=== PATIENT | female | born 1950 | race Caucasian/White ===

== ENCOUNTER 2016-05-18 08:31 | Inpatient (IN) | payer SELFPAY ==
[~2016-05-18] VITALS: Ht 154.9 cm; Wt 60.6 kg
[2016-05-18] MEDS ORDERED: SODIUM CHLORIDE 0.9% 1,000 ML IV ONE (08:54)
[2016-05-18] MEDS ORDERED: ONDANSETRON 2MG/ML, 2ML IVPush ONE (09:00)
[2016-05-18] MEDS ORDERED: HYDROmorphone 1 MG/ML, 1ML IVPush PRN (09:00)
[2016-05-18] MEDS ORDERED: SODIUM CHLORIDE FLUSH 10ML SYR IVF ONE (09:00)
[2016-05-18 09:21] LABS: HEMOGLOBIN 13.9 g/dL (11.7-16.4)
[2016-05-18 09:55] LABS: DAU SCREEN DISCLAIMER
[2016-05-18] MEDS ORDERED: ONDANSETRON 2MG/ML, 2ML ONE (10:24)
[2016-05-18] MEDS ORDERED: HYDROmorphone 1 MG/ML, 1ML ONE ×2 (10:24→10:26)
[2016-05-18 10:25] LABS: BLOOD UREA NITROGEN 13 mg/dL (7-18)
[2016-05-18 10:26] LABS: ASPARTATE AMINO TRANSFERASE 33 U/L (15-37); IS PT STATUS REG ER OR PRE ER? YES
[2016-05-18] MEDS ORDERED: CEFAZOLIN PMX 1GM/50ML 50 ML IVPB ONE (11:00)
[2016-05-18] MEDS ORDERED: CEFAZOLIN PMX 1GM/50ML 50 ML ONE (11:20)
[2016-05-18] MEDS ORDERED: ONDANSETRON 2MG/ML, 2ML IVP PRN (12:00)
[2016-05-18] MEDS ORDERED: HALOPERIDOL 5 MG/ML IVPush PRN (12:00)
[2016-05-18] MEDS ORDERED: MORPHINE SULFATE 4 MG/ML, 1ML IVPush PRN (12:00)
[2016-05-18] MEDS ORDERED: BISACODYL 10 MG SUPP PR PRN (12:00)
[2016-05-18] MEDS ORDERED: LABETALOL 5MG/ML, 20ML IV PRN (12:00)
[2016-05-18 12:29] VITALS: BP_SYST 131; BP_SYST 132; BP_SYST 77; BP_DIAS 41; BP_DIAS 72; BP_DIAS 75
[2016-05-18] MEDS: CEFAZOLIN PMX 1GM/50ML 50 ML IV SCH ×2 (13:00→23:30)
[2016-05-18] MEDS: LACTATED RINGERS 1,000 ML IV SCH ×2 (13:37→22:06)
[2016-05-18] MEDS: NICOTINE 21 MG/24 HR PATCH.TD24 TD SCH (13:39)
[2016-05-18 13:44] VITALS: BP 110/57
[2016-05-18] MEDS: HYDROmorphone 2 MG/ML, 1ML IV PRN (14:29)
[2016-05-18] MEDS: ENOXAPARIN 40 MG/0.4 ML SQ SCH (18:00)
[2016-05-18 19:20] VITALS: BP 106/72
[2016-05-19 00:59] VITALS: BP 121/79
[2016-05-19 02:53] VITALS: BP_SYST 112; BP_SYST 121; BP_SYST 127; BP_DIAS 71; BP_DIAS 77; BP_DIAS 79
[2016-05-19 05:25] LABS: HEMOGLOBIN 11.8 g/dL (11.7-16.4)
[2016-05-19 05:44] LABS: ASPARTATE AMINO TRANSFERASE 13 U/L (15-37); BLOOD UREA NITROGEN 9 mg/dL (7-18)
[2016-05-19 06:46] VITALS: BP 144/73
[2016-05-19] MEDS: CEFAZOLIN PMX 1GM/50ML 50 ML IV SCH ×2 (11:33→23:56)
[2016-05-19] MEDS: HYDROmorphone 2 MG/ML, 1ML IV PRN ×2 (11:34→20:50)
[2016-05-19] MEDS: LACTATED RINGERS 1,000 ML IV SCH ×2 (11:35→20:41)
[2016-05-19] MEDS: NICOTINE 21 MG/24 HR PATCH.TD24 TD SCH (13:21)
[2016-05-19 15:13] VITALS: BP 109/67
[2016-05-19] MEDS: ENOXAPARIN 40 MG/0.4 ML SQ SCH (18:00)
[2016-05-19 18:37] VITALS: BP 108/68
[2016-05-20] MEDS: OXYcodone IR 5MG TABLET PO PRN ×3 (00:07→20:40)
[2016-05-20 01:29] VITALS: BP 115/73
[2016-05-20] MEDS: LACTATED RINGERS 1,000 ML IV SCH (04:13)
[2016-05-20 07:36] VITALS: BP 101/64
[2016-05-20] MEDS: NICOTINE 21 MG/24 HR PATCH.TD24 TD SCH (12:12)
[2016-05-20] MEDS: metroNIDAZOLE 500 MG TABLET PO SCH ×2 (12:12→21:24)
[2016-05-20 16:29] VITALS: BP 110/65
[2016-05-20] MEDS: ENOXAPARIN 40 MG/0.4 ML SQ SCH (18:01)
[2016-05-20 19:30] VITALS: BP 132/75
[2016-05-21 01:15] VITALS: BP 100/58
[2016-05-21] MEDS: OXYcodone IR 5MG TABLET PO PRN ×4 (03:21→21:19)
[2016-05-21 07:57] VITALS: BP 121/70
[2016-05-21] MEDS: metroNIDAZOLE 500 MG TABLET PO SCH ×2 (08:33→21:13)
[2016-05-21] MEDS: ENOXAPARIN 40 MG/0.4 ML SQ SCH (18:15)
[2016-05-21 20:00] VITALS: BP 104/65
[2016-05-21] MEDS: NICOTINE 21 MG/24 HR PATCH.TD24 TD SCH (21:00)
[2016-05-22 02:30] VITALS: BP 131/67
[2016-05-22] MEDS: OXYcodone IR 5MG TABLET PO PRN ×4 (03:00→20:34)
[2016-05-22 07:24] VITALS: BP 109/70
[2016-05-22] MEDS: metroNIDAZOLE 500 MG TABLET PO SCH ×2 (08:51→20:30)
[2016-05-22 12:45] VITALS: BP 115/74
[2016-05-22] MEDS: ENOXAPARIN 40 MG/0.4 ML SQ SCH (17:46)
[2016-05-22 19:18] VITALS: BP 125/76
[2016-05-22] MEDS: NICOTINE 21 MG/24 HR PATCH.TD24 TD SCH (20:30)
[2016-05-23 02:10] VITALS: BP 113/72
[2016-05-23] MEDS: OXYcodone IR 5MG TABLET PO PRN ×5 (02:41→21:25)
[2016-05-23 05:20] LABS: BLOOD UREA NITROGEN 12 mg/dL (7-18)
[2016-05-23 06:41] VITALS: BP 115/72
[2016-05-23] MEDS: metroNIDAZOLE 500 MG TABLET PO SCH ×2 (07:46→21:24)
[2016-05-23] MEDS ORDERED: BISACODYL 5 MG EC TABLET PO PRN (10:00)
[2016-05-23] MEDS: POLYETHYLENE GLYCOL 17 GM PACKET PO SCH (11:25)
[2016-05-23 13:13] VITALS: BP 120/78
[2016-05-23] MEDS: ENOXAPARIN 40 MG/0.4 ML SQ SCH (17:40)
[2016-05-23 19:17] VITALS: BP 125/72
[2016-05-23] MEDS: NICOTINE 21 MG/24 HR PATCH.TD24 TD SCH (21:00)
[2016-05-24 01:19] VITALS: BP 120/74
[2016-05-24] MEDS: OXYcodone IR 5MG TABLET PO PRN ×4 (02:01→20:33)
[2016-05-24 07:07] VITALS: BP 111/70
[2016-05-24] MEDS: metroNIDAZOLE 500 MG TABLET PO SCH ×2 (09:25→20:33)
[2016-05-24] MEDS: POLYETHYLENE GLYCOL 17 GM PACKET PO SCH (09:26)
[2016-05-24 14:12] VITALS: BP 118/78
[2016-05-24] MEDS: ENOXAPARIN 40 MG/0.4 ML SQ SCH (18:00)
[2016-05-24 18:38] VITALS: BP 106/67
[2016-05-24] MEDS: NICOTINE 21 MG/24 HR PATCH.TD24 TD SCH (20:33)
[2016-05-25 01:11] VITALS: BP 110/69
[2016-05-25] MEDS: OXYcodone IR 5MG TABLET PO PRN ×4 (01:50→23:24)
[2016-05-25 07:16] VITALS: BP 103/66
[2016-05-25] MEDS: metroNIDAZOLE 500 MG TABLET PO SCH ×2 (08:35→21:18)
[2016-05-25] MEDS: POLYETHYLENE GLYCOL 17 GM PACKET PO SCH (08:35)
[2016-05-25] MEDS: ASPIRIN 81 MG TABLET EC PO SCH (08:35)
[2016-05-25 14:23] VITALS: BP 106/70
[2016-05-25] MEDS ORDERED: OLANZAPINE 10 MG INJ IM PRN (15:30)
[2016-05-25] MEDS ORDERED: LORazepam 2 MG/ML, 1ML IM PRN (15:30)
[2016-05-25] MEDS ORDERED: BENZTROPINE 1 MG TABLET PO PRN (15:30)
[2016-05-25] MEDS: ENOXAPARIN 40 MG/0.4 ML SQ SCH (17:03)
[2016-05-25 20:16] VITALS: BP 104/66
[2016-05-25] MEDS: OLANZAPINE 5 MG TABLET PO SCH (21:18)
[2016-05-25] MEDS: ATORVASTATIN 10 MG TABLET PO SCH (21:18)
[2016-05-25] MEDS: NICOTINE 21 MG/24 HR PATCH.TD24 TD SCH (21:18)
[2016-05-26 02:06] VITALS: BP 110/59
[2016-05-26] MEDS: OXYcodone IR 5MG TABLET PO PRN ×4 (05:04→19:47)
[2016-05-26] MEDS: ASPIRIN 81 MG TABLET EC PO SCH (05:04)
[2016-05-26 07:46] VITALS: BP 98/63
[2016-05-26] MEDS: POLYETHYLENE GLYCOL 17 GM PACKET PO SCH (09:16)
[2016-05-26] MEDS: metroNIDAZOLE 500 MG TABLET PO SCH ×2 (09:16→19:47)
[2016-05-26 13:30] VITALS: BP 95/59
[2016-05-26] MEDS: ENOXAPARIN 40 MG/0.4 ML SQ SCH (15:34)
[2016-05-26 18:34] VITALS: BP 117/65
[2016-05-26] MEDS: OLANZAPINE 5 MG TABLET PO SCH (19:47)
[2016-05-26] MEDS: ATORVASTATIN 10 MG TABLET PO SCH (19:47)
[2016-05-26] MEDS: NICOTINE 21 MG/24 HR PATCH.TD24 TD SCH (19:47)
[2016-05-27 02:00] VITALS: BP 128/74
[2016-05-27] MEDS: ASPIRIN 81 MG TABLET EC PO SCH (05:12)
[2016-05-27] MEDS: OXYcodone IR 5MG TABLET PO PRN ×3 (05:12→20:52)
[2016-05-27 06:49] VITALS: BP 112/67
[2016-05-27] MEDS: POLYETHYLENE GLYCOL 17 GM PACKET PO SCH ×2 (09:00→09:05)
[2016-05-27] MEDS: metroNIDAZOLE 500 MG TABLET PO SCH (09:05)
[2016-05-27 13:22] VITALS: BP 108/64
[2016-05-27] MEDS: ENOXAPARIN 40 MG/0.4 ML SQ SCH (18:00)
[2016-05-27 19:06] VITALS: BP 118/70
[2016-05-27] MEDS: ATORVASTATIN 10 MG TABLET PO SCH (20:52)
[2016-05-27] MEDS: OLANZAPINE 5 MG TABLET PO SCH (20:52)
[2016-05-27] MEDS: NICOTINE 21 MG/24 HR PATCH.TD24 TD SCH (20:53)
[2016-05-28 03:43] VITALS: BP 111/73
[2016-05-28] MEDS: ASPIRIN 81 MG TABLET EC PO SCH (05:57)
[2016-05-28] MEDS: POLYETHYLENE GLYCOL 17 GM PACKET PO SCH (07:38)
[2016-05-28] MEDS: OXYcodone IR 5MG TABLET PO PRN ×2 (07:47→20:09)
[2016-05-28 07:55] VITALS: BP 138/75
[2016-05-28 13:15] VITALS: BP 107/71
[2016-05-28] MEDS: ENOXAPARIN 40 MG/0.4 ML SQ SCH (17:26)
[2016-05-28 19:48] VITALS: BP 124/77
[2016-05-28] MEDS: ATORVASTATIN 10 MG TABLET PO SCH (20:09)
[2016-05-28] MEDS: OLANZAPINE 5 MG TABLET PO SCH (20:10)
[2016-05-28] MEDS: NICOTINE 21 MG/24 HR PATCH.TD24 TD SCH (20:10)
[2016-05-29 00:48] VITALS: BP 107/70
[2016-05-29] MEDS: ASPIRIN 81 MG TABLET EC PO SCH (05:39)
[2016-05-29] MEDS: OXYcodone IR 5MG TABLET PO PRN ×4 (05:43→20:02)
[2016-05-29 08:22] VITALS: BP 114/72
[2016-05-29] MEDS: POLYETHYLENE GLYCOL 17 GM PACKET PO SCH (08:41)
[2016-05-29 15:02] VITALS: BP 114/65
[2016-05-29 16:14] VITALS: BP 185/111
[2016-05-29 19:01] VITALS: BP 104/66
[2016-05-29] MEDS: OLANZAPINE 5 MG TABLET PO SCH (20:02)
[2016-05-29] MEDS: NICOTINE 21 MG/24 HR PATCH.TD24 TD SCH (20:02)
[2016-05-29] MEDS: ATORVASTATIN 10 MG TABLET PO SCH (20:02)
[2016-05-30] MEDS: OXYcodone IR 5MG TABLET PO PRN ×4 (01:27→16:22)
[2016-05-30 01:51] VITALS: BP 110/71
[2016-05-30] MEDS: ASPIRIN 81 MG TABLET EC PO SCH (05:28)
[2016-05-30 07:02] VITALS: BP 102/64
[2016-05-30] MEDS: POLYETHYLENE GLYCOL 17 GM PACKET PO SCH (09:00)
[2016-05-30] MEDS ORDERED: OLAN5TAB9 PO (12:49)
[2016-05-30 12:52] VITALS: BP 109/67
[2016-05-30 19:11] VITALS: BP 110/70
[2016-05-30] MEDS: ATORVASTATIN 10 MG TABLET PO SCH (19:52)
[2016-05-30] MEDS: OLANZAPINE 5 MG TABLET PO SCH (19:52)
[2016-05-30] MEDS: NICOTINE 21 MG/24 HR PATCH.TD24 TD SCH (19:53)
[2016-05-31 04:40] VITALS: BP 145/78
[2016-05-31] MEDS: ASPIRIN 81 MG TABLET EC PO SCH (04:47)
[2016-05-31] MEDS: OXYcodone IR 5MG TABLET PO PRN ×3 (04:47→22:23)
[2016-05-31 07:44] VITALS: BP 89/56
[2016-05-31] MEDS: POLYETHYLENE GLYCOL 17 GM PACKET PO SCH (09:00)
[2016-05-31 09:40] VITALS: BP 103/84
[2016-05-31 14:00] VITALS: BP 104/61
[2016-05-31 19:44] VITALS: BP 115/74
[2016-05-31] MEDS: NICOTINE 21 MG/24 HR PATCH.TD24 TD SCH (22:23)
[2016-05-31] MEDS: OLANZAPINE 5 MG TABLET PO SCH (22:24)
[2016-05-31] MEDS: ATORVASTATIN 10 MG TABLET PO SCH (22:24)
[2016-06-01] MEDS ORDERED: ASPI-496 PO (01:28)
[2016-06-01] MEDS ORDERED: ATOR10TA PO (01:32)
[2016-06-01] MEDS ORDERED: ATOR80TA75 PO (01:32)
[2016-06-01 03:41] VITALS: BP 125/67
[2016-06-01] MEDS: OXYcodone IR 5MG TABLET PO PRN ×5 (03:51→23:32)
[2016-06-01] MEDS: ASPIRIN 81 MG TABLET EC PO SCH (05:58)
[2016-06-01 07:46] VITALS: BP 124/64
[2016-06-01] MEDS: POLYETHYLENE GLYCOL 17 GM PACKET PO SCH (08:22)
[2016-06-01 13:55] VITALS: BP 107/59
[2016-06-01 19:17] VITALS: BP 112/61
[2016-06-01] MEDS: LORazepam 1MG TABLET PO PRN (20:15)
[2016-06-01] MEDS: ATORVASTATIN 10 MG TABLET PO SCH (20:15)
[2016-06-01] MEDS: OLANZAPINE 5 MG TABLET PO SCH (20:15)
[2016-06-01] MEDS: NICOTINE 21 MG/24 HR PATCH.TD24 TD SCH (20:16)
[2016-06-02] MEDS: LORazepam 1MG TABLET PO PRN (00:20)
[2016-06-02 02:10] VITALS: BP 95/63
[2016-06-02] MEDS: ASPIRIN 81 MG TABLET EC PO SCH (05:41)
[2016-06-02 07:42] VITALS: BP 93/60
[2016-06-02] MEDS: POLYETHYLENE GLYCOL 17 GM PACKET PO SCH (09:00)
[2016-06-02] MEDS: OXYcodone IR 5MG TABLET PO PRN ×3 (12:04→22:29)
[2016-06-02 13:16] VITALS: BP 105/64
[2016-06-02 20:00] VITALS: BP 133/80
[2016-06-02] MEDS: ATORVASTATIN 10 MG TABLET PO SCH (22:29)
[2016-06-02] MEDS: OLANZAPINE 5 MG TABLET PO SCH (22:29)
[2016-06-02] MEDS: NICOTINE 21 MG/24 HR PATCH.TD24 TD SCH (22:29)
[2016-06-03 02:06] VITALS: BP 95/62
[2016-06-03] MEDS: OXYcodone IR 5MG TABLET PO PRN ×4 (05:30→23:05)
[2016-06-03] MEDS: ASPIRIN 81 MG TABLET EC PO SCH (05:30)
[2016-06-03] MEDS: POLYETHYLENE GLYCOL 17 GM PACKET PO SCH (09:36)
[2016-06-03 13:15] VITALS: BP 101/68
[2016-06-03 19:37] VITALS: BP 112/70
[2016-06-03] MEDS: ATORVASTATIN 10 MG TABLET PO SCH (20:00)
[2016-06-03] MEDS: OLANZAPINE 5 MG TABLET PO SCH (20:01)
[2016-06-03] MEDS: NICOTINE 21 MG/24 HR PATCH.TD24 TD SCH (20:01)
[2016-06-04 01:44] VITALS: BP 117/76
[2016-06-04] MEDS: ASPIRIN 81 MG TABLET EC PO SCH (06:04)
[2016-06-04] MEDS: OXYcodone IR 5MG TABLET PO PRN ×4 (06:23→22:03)
[2016-06-04 07:37] VITALS: BP 112/71
[2016-06-04] MEDS: POLYETHYLENE GLYCOL 17 GM PACKET PO SCH (07:43)
[2016-06-04 13:31] VITALS: BP 118/78
[2016-06-04 19:59] VITALS: BP 111/65
[2016-06-04] MEDS: ATORVASTATIN 10 MG TABLET PO SCH (20:30)
[2016-06-04] MEDS: NICOTINE 21 MG/24 HR PATCH.TD24 TD SCH (20:30)
[2016-06-04] MEDS: OLANZAPINE 5 MG TABLET PO SCH (20:30)
[2016-06-04] MEDS: LORazepam 1MG TABLET PO PRN (22:03)
[2016-06-05 05:23] VITALS: BP 114/68
[2016-06-05] MEDS: ASPIRIN 81 MG TABLET EC PO SCH (05:27)
[2016-06-05] MEDS: OXYcodone IR 5MG TABLET PO PRN ×3 (05:28→23:31)
[2016-06-05 08:29] VITALS: BP 118/73
[2016-06-05] MEDS: POLYETHYLENE GLYCOL 17 GM PACKET PO SCH (11:50)
[2016-06-05 12:05] LABS: HEMOGLOBIN 12.1 g/dL (11.7-16.4)
[2016-06-05 12:17] LABS: BLOOD UREA NITROGEN 10 mg/dL (7-18)
[2016-06-05 12:22] LABS: ASPARTATE AMINO TRANSFERASE 12 U/L (15-37)
[2016-06-05 14:20] VITALS: BP 116/67
[2016-06-05] MEDS: LORazepam 1MG TABLET PO PRN (14:40)
[2016-06-05 23:18] VITALS: BP 120/70
[2016-06-05] MEDS: ATORVASTATIN 10 MG TABLET PO SCH (23:31)
[2016-06-05] MEDS: OLANZAPINE 5 MG TABLET PO SCH (23:31)
[2016-06-05] MEDS: NICOTINE 21 MG/24 HR PATCH.TD24 TD SCH (23:32)
[2016-06-06] MEDS: ASPIRIN 81 MG TABLET EC PO SCH (06:12)
[2016-06-06 07:42] VITALS: BP 112/68
[2016-06-06] MEDS: OXYcodone IR 5MG TABLET PO PRN ×3 (09:45→20:58)
[2016-06-06] MEDS: POLYETHYLENE GLYCOL 17 GM PACKET PO SCH (09:46)
[2016-06-06 13:30] VITALS: BP 106/67
[2016-06-06 19:40] VITALS: BP 114/67
[2016-06-06] MEDS: NICOTINE 21 MG/24 HR PATCH.TD24 TD SCH (20:59)
[2016-06-06] MEDS: ATORVASTATIN 10 MG TABLET PO SCH (20:59)
[2016-06-06] MEDS: OLANZAPINE 5 MG TABLET PO SCH (20:59)
[2016-06-06] MEDS: LORazepam 1MG TABLET PO PRN (23:37)
[2016-06-07] MEDS: OXYcodone IR 5MG TABLET PO PRN ×4 (01:00→18:17)
[2016-06-07 02:09] VITALS: BP 114/69
[2016-06-07] MEDS: ASPIRIN 81 MG TABLET EC PO SCH (05:36)
[2016-06-07 07:30] VITALS: BP 113/71
[2016-06-07] MEDS: POLYETHYLENE GLYCOL 17 GM PACKET PO SCH (08:20)
[2016-06-07 13:02] VITALS: BP 112/69
[2016-06-07 19:00] VITALS: BP 115/68
[2016-06-07] MEDS: NICOTINE 21 MG/24 HR PATCH.TD24 TD SCH (20:27)
[2016-06-07] MEDS: ATORVASTATIN 10 MG TABLET PO SCH (20:27)
[2016-06-07] MEDS: OLANZAPINE 5 MG TABLET PO SCH (20:27)
[2016-06-08] MEDS: OXYcodone IR 5MG TABLET PO PRN ×5 (00:56→20:09)
[2016-06-08 01:35] VITALS: BP 117/66
[2016-06-08] MEDS: ASPIRIN 81 MG TABLET EC PO SCH (05:10)
[2016-06-08 06:38] VITALS: BP 112/66
[2016-06-08] MEDS: POLYETHYLENE GLYCOL 17 GM PACKET PO SCH (07:45)
[2016-06-08 14:30] VITALS: BP 114/70
[2016-06-08 19:23] VITALS: BP 123/64
[2016-06-08] MEDS: LORazepam 1MG TABLET PO PRN (20:09)
[2016-06-08] MEDS: OLANZAPINE 5 MG TABLET PO SCH (20:09)
[2016-06-08] MEDS: NICOTINE 21 MG/24 HR PATCH.TD24 TD SCH (20:09)
[2016-06-08] MEDS: ATORVASTATIN 10 MG TABLET PO SCH (20:09)
[2016-06-09 03:47] VITALS: BP 104/72
[2016-06-09] MEDS: OXYcodone IR 5MG TABLET PO PRN ×2 (03:54→18:28)
[2016-06-09] MEDS: ASPIRIN 81 MG TABLET EC PO SCH (06:30)
[2016-06-09] MEDS: POLYETHYLENE GLYCOL 17 GM PACKET PO SCH (09:00)
[2016-06-09 10:46] VITALS: BP 97/64
[2016-06-09 14:24] VITALS: BP 110/69
[2016-06-09 18:56] VITALS: BP 127/77
[2016-06-09] MEDS: ATORVASTATIN 10 MG TABLET PO SCH (20:55)
[2016-06-09] MEDS: OLANZAPINE 5 MG TABLET PO SCH (20:55)
[2016-06-09] MEDS: NICOTINE 21 MG/24 HR PATCH.TD24 TD SCH (20:56)
[2016-06-10] MEDS: OXYcodone IR 5MG TABLET PO PRN ×4 (01:29→20:37)
[2016-06-10 01:59] VITALS: BP 112/71
[2016-06-10] MEDS: ASPIRIN 81 MG TABLET EC PO SCH (05:46)
[2016-06-10 07:59] VITALS: BP 102/67
[2016-06-10] MEDS: POLYETHYLENE GLYCOL 17 GM PACKET PO SCH (09:00)
[2016-06-10 14:00] VITALS: BP 102/69
[2016-06-10 19:00] VITALS: BP 106/66
[2016-06-10] MEDS: NICOTINE 21 MG/24 HR PATCH.TD24 TD SCH (20:36)
[2016-06-10] MEDS: ATORVASTATIN 10 MG TABLET PO SCH (20:36)
[2016-06-10] MEDS: OLANZAPINE 5 MG TABLET PO SCH (20:37)
[2016-06-11 02:02] VITALS: BP 119/68
[2016-06-11] MEDS: OXYcodone IR 5MG TABLET PO PRN ×3 (02:18→21:45)
[2016-06-11] MEDS: ASPIRIN 81 MG TABLET EC PO SCH (06:31)
[2016-06-11 08:32] VITALS: BP 123/74
[2016-06-11] MEDS: POLYETHYLENE GLYCOL 17 GM PACKET PO SCH (09:00)
[2016-06-11 14:30] VITALS: BP 107/61
[2016-06-11 19:00] VITALS: BP 128/64
[2016-06-11] MEDS: ATORVASTATIN 10 MG TABLET PO SCH (21:45)
[2016-06-11] MEDS: NICOTINE 21 MG/24 HR PATCH.TD24 TD SCH (21:45)
[2016-06-11] MEDS: OLANZAPINE 5 MG TABLET PO SCH (21:46)
[2016-06-12 02:32] VITALS: BP 126/61
[2016-06-12] MEDS: ASPIRIN 81 MG TABLET EC PO SCH (06:58)
[2016-06-12] MEDS: OXYcodone IR 5MG TABLET PO PRN ×2 (06:58→20:30)
[2016-06-12 08:27] VITALS: BP 118/74
[2016-06-12] MEDS: POLYETHYLENE GLYCOL 17 GM PACKET PO SCH (09:00)
[2016-06-12 14:35] VITALS: BP 103/71
[2016-06-12] MEDS: ATORVASTATIN 10 MG TABLET PO SCH (20:26)
[2016-06-12] MEDS: NICOTINE 21 MG/24 HR PATCH.TD24 TD SCH (20:26)
[2016-06-12] MEDS: OLANZAPINE 5 MG TABLET PO SCH (20:27)
[2016-06-12 20:36] VITALS: BP 125/78
[2016-06-13 01:45] VITALS: BP 125/81
[2016-06-13] MEDS: POLYETHYLENE GLYCOL 17 GM PACKET PO SCH (07:22)
[2016-06-13] MEDS: ASPIRIN 81 MG TABLET EC PO SCH (07:22)
[2016-06-13] MEDS: OXYcodone IR 5MG TABLET PO PRN ×3 (07:22→18:42)
[2016-06-13 07:49] VITALS: BP 124/72
[2016-06-13 12:47] VITALS: BP 112/74
[2016-06-13 18:39] VITALS: BP 121/72
[2016-06-13] MEDS: NICOTINE 21 MG/24 HR PATCH.TD24 TD SCH (20:52)
[2016-06-13] MEDS: OLANZAPINE 5 MG TABLET PO SCH (20:55)
[2016-06-13] MEDS: ATORVASTATIN 10 MG TABLET PO SCH (20:55)
[2016-06-14 01:48] VITALS: BP 149/75
[2016-06-14] MEDS: OXYcodone IR 5MG TABLET PO PRN ×3 (05:47→20:32)
[2016-06-14] MEDS: ASPIRIN 81 MG TABLET EC PO SCH (05:49)
[2016-06-14 07:49] VITALS: BP 109/57
[2016-06-14] MEDS: POLYETHYLENE GLYCOL 17 GM PACKET PO SCH (08:12)
[2016-06-14 13:26] VITALS: BP 124/61
[2016-06-14 19:59] VITALS: BP 122/73
[2016-06-14] MEDS: ATORVASTATIN 10 MG TABLET PO SCH (20:33)
[2016-06-14] MEDS: NICOTINE 21 MG/24 HR PATCH.TD24 TD SCH (20:33)
[2016-06-14] MEDS: OLANZAPINE 5 MG TABLET PO SCH (20:33)
[2016-06-15 02:00] VITALS: BP 101/64
[2016-06-15] MEDS: OXYcodone IR 5MG TABLET PO PRN ×2 (06:02→17:57)
[2016-06-15] MEDS: ASPIRIN 81 MG TABLET EC PO SCH (06:02)
[2016-06-15 07:59] VITALS: BP 134/77
[2016-06-15] MEDS: POLYETHYLENE GLYCOL 17 GM PACKET PO SCH (08:21)
[2016-06-15 13:59] VITALS: BP 122/63
[2016-06-15 19:52] VITALS: BP 104/67
[2016-06-15] MEDS: OLANZAPINE 5 MG TABLET PO SCH (20:21)
[2016-06-15] MEDS: ATORVASTATIN 10 MG TABLET PO SCH (20:21)
[2016-06-15] MEDS: NICOTINE 21 MG/24 HR PATCH.TD24 TD SCH (20:25)
[2016-06-16 02:30] VITALS: BP 98/63
[2016-06-16] MEDS: ASPIRIN 81 MG TABLET EC PO SCH (05:33)
[2016-06-16 07:23] VITALS: BP 109/70
[2016-06-16] MEDS: POLYETHYLENE GLYCOL 17 GM PACKET PO SCH (07:54)
[2016-06-16] MEDS: OXYcodone IR 5MG TABLET PO PRN ×2 (07:54→22:40)
[2016-06-16 14:05] VITALS: BP 129/66
[2016-06-16 19:08] VITALS: BP 126/82
[2016-06-16] MEDS: ATORVASTATIN 10 MG TABLET PO SCH (20:38)
[2016-06-16] MEDS: OLANZAPINE 5 MG TABLET PO SCH (20:38)
[2016-06-16] MEDS: NICOTINE 21 MG/24 HR PATCH.TD24 TD SCH (20:39)
[2016-06-17 02:07] VITALS: BP 127/72
[2016-06-17] MEDS: ASPIRIN 81 MG TABLET EC PO SCH (05:40)
[2016-06-17 06:45] VITALS: BP 126/64
[2016-06-17] MEDS: POLYETHYLENE GLYCOL 17 GM PACKET PO SCH (09:00)
[2016-06-17] MEDS: OXYcodone IR 5MG TABLET PO PRN ×2 (09:55→19:17)
[2016-06-17 12:35] VITALS: BP 123/67
[2016-06-17 13:18] VITALS: BP 95/63
[2016-06-17 19:33] VITALS: BP 119/74
[2016-06-17] MEDS: ATORVASTATIN 10 MG TABLET PO SCH (20:14)
[2016-06-17] MEDS: OLANZAPINE 5 MG TABLET PO SCH (20:14)
[2016-06-17] MEDS: NICOTINE 21 MG/24 HR PATCH.TD24 TD SCH (20:14)
[2016-06-18] MEDS: OXYcodone IR 5MG TABLET PO PRN ×4 (00:23→20:16)
[2016-06-18 02:33] VITALS: BP 122/78
[2016-06-18] MEDS: ASPIRIN 81 MG TABLET EC PO SCH (06:12)
[2016-06-18 07:29] VITALS: BP 120/68
[2016-06-18] MEDS: POLYETHYLENE GLYCOL 17 GM PACKET PO SCH (08:41)
[2016-06-18 14:55] VITALS: BP 119/74
[2016-06-18 18:49] VITALS: BP 102/72
[2016-06-18] MEDS: ATORVASTATIN 10 MG TABLET PO SCH (20:16)
[2016-06-18] MEDS: NICOTINE 21 MG/24 HR PATCH.TD24 TD SCH (20:16)
[2016-06-18] MEDS: OLANZAPINE 5 MG TABLET PO SCH (20:16)
[2016-06-19 02:00] VITALS: BP 105/67
[2016-06-19] MEDS: ASPIRIN 81 MG TABLET EC PO SCH (06:27)
[2016-06-19 06:42] VITALS: BP 128/78
[2016-06-19] MEDS: OXYcodone IR 5MG TABLET PO PRN ×3 (07:17→18:33)
[2016-06-19] MEDS: POLYETHYLENE GLYCOL 17 GM PACKET PO SCH (07:37)
[2016-06-19 13:58] VITALS: BP 111/63
[2016-06-19 19:41] VITALS: BP 120/69
[2016-06-19] MEDS: ATORVASTATIN 10 MG TABLET PO SCH (20:04)
[2016-06-19] MEDS: OLANZAPINE 5 MG TABLET PO SCH (20:04)
[2016-06-19] MEDS: NICOTINE 21 MG/24 HR PATCH.TD24 TD SCH (20:06)
[2016-06-20 01:26] VITALS: BP 90/53
[2016-06-20] MEDS: ASPIRIN 81 MG TABLET EC PO SCH (05:47)
[2016-06-20 07:50] VITALS: BP 111/74
[2016-06-20] MEDS: POLYETHYLENE GLYCOL 17 GM PACKET PO SCH (09:00)
[2016-06-20] MEDS: OXYcodone IR 5MG TABLET PO PRN ×2 (09:04→19:32)
[2016-06-20 13:49] VITALS: BP 121/73
[2016-06-20 19:24] VITALS: BP 103/70
[2016-06-20] MEDS: ATORVASTATIN 10 MG TABLET PO SCH (19:31)
[2016-06-20] MEDS: OLANZAPINE 5 MG TABLET PO SCH (19:32)
[2016-06-20] MEDS: NICOTINE 21 MG/24 HR PATCH.TD24 TD SCH (19:32)
[2016-06-21 01:08] VITALS: BP 114/71
[2016-06-21] MEDS: OXYcodone IR 5MG TABLET PO PRN ×4 (04:48→23:17)
[2016-06-21 05:30] LABS: HEMOGLOBIN 13.2 g/dL (11.7-16.4)
[2016-06-21] MEDS: ASPIRIN 81 MG TABLET EC PO SCH (05:32)
[2016-06-21 05:45] LABS: BLOOD UREA NITROGEN 11 mg/dL (7-18)
[2016-06-21 07:23] VITALS: BP 124/72
[2016-06-21] MEDS: ARIPIPRAZOLE 10 MG TABLET PO SCH (08:53)
[2016-06-21] MEDS: POLYETHYLENE GLYCOL 17 GM PACKET PO SCH (08:57)
[2016-06-21 13:18] VITALS: BP 116/63
[2016-06-21 19:25] VITALS: BP 106/70
[2016-06-21] MEDS: OLANZAPINE 5 MG TABLET PO SCH (20:48)
[2016-06-21] MEDS: ATORVASTATIN 10 MG TABLET PO SCH (20:48)
[2016-06-21] MEDS: NICOTINE 21 MG/24 HR PATCH.TD24 TD SCH (20:48)
[2016-06-22 02:04] VITALS: BP 99/55
[2016-06-22] MEDS: ASPIRIN 81 MG TABLET EC PO SCH (06:06)
[2016-06-22] MEDS: OXYcodone IR 5MG TABLET PO PRN ×3 (06:06→20:40)
[2016-06-22 07:44] VITALS: BP 108/74
[2016-06-22] MEDS: POLYETHYLENE GLYCOL 17 GM PACKET PO SCH (09:00)
[2016-06-22] MEDS: ARIPIPRAZOLE 10 MG TABLET PO SCH (14:19)
[2016-06-22 14:37] VITALS: BP 116/72
[2016-06-22 19:53] VITALS: BP 101/61
[2016-06-22] MEDS: ATORVASTATIN 10 MG TABLET PO SCH (20:40)
[2016-06-22] MEDS: OLANZAPINE 5 MG TABLET PO SCH (20:41)
[2016-06-22] MEDS: NICOTINE 21 MG/24 HR PATCH.TD24 TD SCH (20:42)
[2016-06-23 04:00] VITALS: BP 108/66
[2016-06-23] MEDS: ASPIRIN 81 MG TABLET EC PO SCH ×2 (04:29→04:30)
[2016-06-23] MEDS: OXYcodone IR 5MG TABLET PO PRN ×3 (04:29→19:55)
[2016-06-23 07:37] VITALS: BP 122/74
[2016-06-23] MEDS: POLYETHYLENE GLYCOL 17 GM PACKET PO SCH (09:57)
[2016-06-23] MEDS: ARIPIPRAZOLE 10 MG TABLET PO SCH (09:57)
[2016-06-23 13:49] VITALS: BP 114/71
[2016-06-23 19:33] VITALS: BP 132/52
[2016-06-23] MEDS: OLANZAPINE 5 MG TABLET PO SCH (19:55)
[2016-06-23] MEDS: ATORVASTATIN 10 MG TABLET PO SCH (19:55)
[2016-06-23] MEDS: NICOTINE 21 MG/24 HR PATCH.TD24 TD SCH (19:56)
[2016-06-24] MEDS: OXYcodone IR 5MG TABLET PO PRN ×3 (00:01→14:14)
[2016-06-24 00:19] VITALS: BP 112/70
[2016-06-24] MEDS: ASPIRIN 81 MG TABLET EC PO SCH (06:22)
[2016-06-24 07:38] VITALS: BP 117/72
[2016-06-24] MEDS: POLYETHYLENE GLYCOL 17 GM PACKET PO SCH (09:00)
[2016-06-24] MEDS: ARIPIPRAZOLE 10 MG TABLET PO SCH (09:00)
[2016-06-24 12:02] VITALS: BP 107/67
[2016-06-24 18:47] VITALS: BP 96/56
[2016-06-24] MEDS: OLANZAPINE 5 MG TABLET PO SCH (21:35)
[2016-06-24] MEDS: NICOTINE 21 MG/24 HR PATCH.TD24 TD SCH (21:35)
[2016-06-24] MEDS: ATORVASTATIN 10 MG TABLET PO SCH (21:35)
[2016-06-25 01:55] VITALS: BP 98/62
[2016-06-25] MEDS: ASPIRIN 81 MG TABLET EC PO SCH (05:51)
[2016-06-25] MEDS: OXYcodone IR 5MG TABLET PO PRN ×3 (05:51→19:53)
[2016-06-25 07:25] VITALS: BP 120/74
[2016-06-25] MEDS: POLYETHYLENE GLYCOL 17 GM PACKET PO SCH (09:00)
[2016-06-25] MEDS: ARIPIPRAZOLE 10 MG TABLET PO SCH (09:14)
[2016-06-25 13:11] VITALS: BP 129/90
[2016-06-25 19:13] VITALS: BP 132/85
[2016-06-25] MEDS: NICOTINE 21 MG/24 HR PATCH.TD24 TD SCH (19:53)
[2016-06-25] MEDS: ATORVASTATIN 10 MG TABLET PO SCH (19:53)
[2016-06-25] MEDS: OLANZAPINE 5 MG TABLET PO SCH (19:53)
[2016-06-26 03:55] VITALS: BP 110/71
[2016-06-26] MEDS: OXYcodone IR 5MG TABLET PO PRN ×4 (04:20→21:49)
[2016-06-26] MEDS: ASPIRIN 81 MG TABLET EC PO SCH (05:54)
[2016-06-26 07:00] VITALS: BP 101/66
[2016-06-26] MEDS: POLYETHYLENE GLYCOL 17 GM PACKET PO SCH (09:50)
[2016-06-26] MEDS: ARIPIPRAZOLE 10 MG TABLET PO SCH (09:50)
[2016-06-26 14:52] VITALS: BP 105/65
[2016-06-26 18:32] VITALS: BP 98/63
[2016-06-26] MEDS: ATORVASTATIN 10 MG TABLET PO SCH (21:00)
[2016-06-26] MEDS: OLANZAPINE 5 MG TABLET PO SCH (21:00)
[2016-06-26] MEDS: NICOTINE 21 MG/24 HR PATCH.TD24 TD SCH (21:47)
[2016-06-27 01:06] VITALS: BP 103/64
[2016-06-27] MEDS: OXYcodone IR 5MG TABLET PO PRN ×4 (05:09→18:41)
[2016-06-27] MEDS: ASPIRIN 81 MG TABLET EC PO SCH (05:09)
[2016-06-27 07:28] VITALS: BP 109/50
[2016-06-27] MEDS: POLYETHYLENE GLYCOL 17 GM PACKET PO SCH (09:08)
[2016-06-27] MEDS: ARIPIPRAZOLE 10 MG TABLET PO SCH (09:09)
[2016-06-27 13:00] VITALS: BP 118/72
[2016-06-27 19:30] VITALS: BP 108/69
[2016-06-27] MEDS: ATORVASTATIN 10 MG TABLET PO SCH (21:02)
[2016-06-27] MEDS: OLANZAPINE 5 MG TABLET PO SCH (21:02)
[2016-06-27] MEDS: NICOTINE 21 MG/24 HR PATCH.TD24 TD SCH (21:03)
[2016-06-28 04:23] VITALS: BP 130/74
[2016-06-28] MEDS: ASPIRIN 81 MG TABLET EC PO SCH (05:51)
[2016-06-28] MEDS: OXYcodone IR 5MG TABLET PO PRN ×2 (05:51→18:09)
[2016-06-28 07:03] VITALS: BP 109/68
[2016-06-28] MEDS: ARIPIPRAZOLE 10 MG TABLET PO SCH (09:18)
[2016-06-28] MEDS: POLYETHYLENE GLYCOL 17 GM PACKET PO SCH (09:19)
[2016-06-28] MEDS ORDERED: OLANZAPINE 10 MG TABLET PO ONE (11:00)
[2016-06-28 15:01] VITALS: BP 113/72
[2016-06-28 19:08] VITALS: BP 97/61
[2016-06-28] MEDS: NICOTINE 21 MG/24 HR PATCH.TD24 TD SCH (20:58)
[2016-06-28] MEDS: ATORVASTATIN 10 MG TABLET PO SCH (20:58)
[2016-06-28] MEDS: OLANZAPINE 5 MG TABLET PO SCH (20:59)
[2016-06-29 01:33] VITALS: BP 114/64
[2016-06-29] MEDS: ASPIRIN 81 MG TABLET EC PO SCH (05:55)
[2016-06-29] MEDS: OXYcodone IR 5MG TABLET PO PRN ×3 (05:55→18:32)
[2016-06-29 07:06] VITALS: BP 103/65
[2016-06-29] MEDS: ARIPIPRAZOLE 10 MG TABLET PO SCH (08:30)
[2016-06-29] MEDS: POLYETHYLENE GLYCOL 17 GM PACKET PO SCH (08:30)
[2016-06-29 13:02] VITALS: BP 118/73
[2016-06-29 18:34] VITALS: BP 112/71
[2016-06-29] MEDS: OLANZAPINE 5 MG TABLET PO SCH (21:05)
[2016-06-29] MEDS: ATORVASTATIN 10 MG TABLET PO SCH (21:05)
[2016-06-29] MEDS: NICOTINE 21 MG/24 HR PATCH.TD24 TD SCH (21:05)
[2016-06-30 00:54] VITALS: BP 109/60
[2016-06-30] MEDS: ASPIRIN 81 MG TABLET EC PO SCH (06:38)
[2016-06-30 06:49] VITALS: BP 96/62
[2016-06-30] MEDS: OXYcodone IR 5MG TABLET PO PRN ×3 (06:59→18:22)
[2016-06-30] MEDS: ARIPIPRAZOLE 10 MG TABLET PO SCH (08:16)
[2016-06-30] MEDS: POLYETHYLENE GLYCOL 17 GM PACKET PO SCH (09:00)
[2016-06-30 13:17] VITALS: BP 125/66
[2016-06-30 18:59] VITALS: BP 128/83
[2016-06-30 19:00] VITALS: BP 95/57
[2016-06-30] MEDS: ATORVASTATIN 10 MG TABLET PO SCH (20:51)
[2016-06-30] MEDS: NICOTINE 21 MG/24 HR PATCH.TD24 TD SCH (20:51)
[2016-06-30] MEDS: OLANZAPINE 5 MG TABLET PO SCH (20:52)
[2016-07-01] MEDS: OXYcodone IR 5MG TABLET PO PRN ×2 (03:46→13:57)
[2016-07-01] MEDS: ASPIRIN 81 MG TABLET EC PO SCH (05:54)
[2016-07-01 07:38] VITALS: BP 100/53
[2016-07-01] MEDS: ARIPIPRAZOLE 10 MG TABLET PO SCH (09:00)
[2016-07-01] MEDS: POLYETHYLENE GLYCOL 17 GM PACKET PO SCH (09:00)
[2016-07-01 13:25] VITALS: BP 101/65
[2016-07-01] MEDS: ACETAMINOPHEN 325 MG TABLET PO PRN (16:50)
[2016-07-01 18:22] VITALS: BP 108/66
[2016-07-01] MEDS: ATORVASTATIN 10 MG TABLET PO SCH (20:23)
[2016-07-01] MEDS: NICOTINE 21 MG/24 HR PATCH.TD24 TD SCH (20:24)
[2016-07-01] MEDS: OLANZAPINE 5 MG TABLET PO SCH (20:24)
[2016-07-02 01:10] VITALS: BP 131/70
[2016-07-02] MEDS: OXYcodone IR 5MG TABLET PO PRN ×2 (01:35→18:13)
[2016-07-02] MEDS: ASPIRIN 81 MG TABLET EC PO SCH (06:09)
[2016-07-02 06:50] VITALS: BP 15/57
[2016-07-02] MEDS: POLYETHYLENE GLYCOL 17 GM PACKET PO SCH (08:48)
[2016-07-02] MEDS: ARIPIPRAZOLE 10 MG TABLET PO SCH (08:51)
[2016-07-02 13:00] VITALS: BP 103/58
[2016-07-02 13:50] VITALS: BP 126/86
[2016-07-02 19:36] VITALS: BP 113/71
[2016-07-02] MEDS: NICOTINE 21 MG/24 HR PATCH.TD24 TD SCH (21:00)
[2016-07-02] MEDS: ATORVASTATIN 10 MG TABLET PO SCH (21:17)
[2016-07-02] MEDS: OLANZAPINE 5 MG TABLET PO SCH (21:18)
[2016-07-03] MEDS: ASPIRIN 81 MG TABLET EC PO SCH (06:03)
[2016-07-03 07:35] VITALS: BP 127/72
[2016-07-03] MEDS: ARIPIPRAZOLE 10 MG TABLET PO SCH (08:15)
[2016-07-03] MEDS: POLYETHYLENE GLYCOL 17 GM PACKET PO SCH (08:15)
[2016-07-03] MEDS: OXYcodone IR 5MG TABLET PO PRN ×2 (11:05→20:06)
[2016-07-03] MEDS: ACETAMINOPHEN 325 MG TABLET PO PRN (17:40)
[2016-07-03 19:09] VITALS: BP 121/74
[2016-07-03 19:32] VITALS: BP 114/72
[2016-07-03] MEDS: ATORVASTATIN 10 MG TABLET PO SCH (20:04)
[2016-07-03] MEDS: OLANZAPINE 5 MG TABLET PO SCH (20:05)
[2016-07-03] MEDS: NICOTINE 21 MG/24 HR PATCH.TD24 TD SCH (20:05)
[2016-07-04] MEDS: ASPIRIN 81 MG TABLET EC PO SCH (06:06)
[2016-07-04 07:37] VITALS: BP 106/72
[2016-07-04] MEDS: ARIPIPRAZOLE 10 MG TABLET PO SCH (08:15)
[2016-07-04] MEDS: POLYETHYLENE GLYCOL 17 GM PACKET PO SCH (08:17)
[2016-07-04] MEDS ORDERED: ARIP10TA13 PO (15:30)
== END 2016-07-04 17:08 | DRG 641 ==
LOC: ED 08:40 → EDIP 10:57 → 5SO 12:41 → 3NE 05-20 16:28 → 3E 07-02 13:43
PROVIDERS: ADMIT Internal Medicine
PROC: 0T9B70Z Drainage of Bladder with Drainage Device, Via Natural or Artificial Opening (ICD-10-PCS; principal; 2016-05-18)
DX: E86.1 Hypovolemia (principal); N39.0 Urinary tract infection, site not specified; S02.40CA Maxillary fracture, right side, initial encounter for closed fracture; S02.601A Fracture of unspecified part of body of right mandible, initial encounter for closed fracture; S02.602A Fracture of unspecified part of body of left mandible, initial encounter for closed fracture; I50.32 Chronic diastolic (congestive) heart failure; F23 Brief psychotic disorder; S02.40EA Zygomatic fracture, right side, initial encounter for closed fracture; E87.2 Acidosis; M19.90 Unspecified osteoarthritis, unspecified site; I25.10 Atherosclerotic heart disease of native coronary artery without angina pectoris; F32.9 Major depressive disorder, single episode, unspecified; F17.210 Nicotine dependence, cigarettes, uncomplicated; W18.39XA Other fall on same level, initial encounter; S80.01XA Contusion of right knee, initial encounter; S01.512A Laceration without foreign body of oral cavity, initial encounter; I08.1 Rheumatic disorders of both mitral and tricuspid valves; G89.29 Other chronic pain; B96.89 Other specified bacterial agents as the cause of diseases classified elsewhere; F22 Delusional disorders; I25.2 Old myocardial infarction; Z86.73 Personal history of transient ischemic attack (TIA), and cerebral infarction without residual deficits; Z59.0 Homelessness; Y93.89 Activity, other specified; Y92.89 Other specified places as the place of occurrence of the external cause; Y99.8 Other external cause status; Z91.19 Patient's noncompliance with other medical treatment and regimen; Z91.14 Patient's other noncompliance with medication regimen; Z79.899 Other long term (current) drug therapy
CPT/HCPCS: 36415; 51701; 70450; 70486; 71010; 72125; 80048; 80053; 80307; 81001; 81003; 82565; 82962; 83036; 84484; 85025; 87040; 87086; 93005; 93306; 96361; 96365; 96375; J0690; J1170; J2405; P9612